=== PATIENT | male | born 1970 | race Caucasian/White ===

== ENCOUNTER 2017-05-04 08:37 | Emergency (ER) | payer OTHER ==
[~2017-05-04] VITALS: Ht 172.7 cm; Wt 76.2 kg
[2017-05-04] MEDS ORDERED: NOMEDS XX (08:48)
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
[2017-05-04 10:07] VITALS: BP 150/88
== END 2017-05-04 10:07 | disposition home or self-care (01) ==
LOC: ER 08:37
DX: S82.892A Other fracture of left lower leg, initial encounter for closed fracture (principal); S80.12XA Contusion of left lower leg, initial encounter; S93.402A Sprain of unspecified ligament of left ankle, initial encounter; V29.9XXA Motorcycle rider (driver) (passenger) injured in unspecified traffic accident, initial encounter